=== PATIENT | male | born 2000 | race African-American/Black ===

== ENCOUNTER 2020-10-25 21:27 | Emergency (ER) | payer OTHER, SELFPAY ==
--- NOTE | ~2020-10-25 | XR_ITS ---
XR hand RT min 3V DATE: 10/25/2020 22:13 INDICATION: Injury. Posterior laceration and swelling TECHNIQUE: 3 views COMPARISON: None FINDINGS: There is a transverse fracture of the mid shaft of the fourth metacarpal bone. There is 1.5 mm ulnar displacement, complete dorsal displacement and approximately 20 degrees apex dorsal angulat ion. No other fracture or dislocation. IMPRESSION: Fourth metacarpal shaft fracture Reviewed, dictated and finalized at location A.
[2020-10-25 21:32] VITALS: BP 146/88; PULSE 75; RESP 16; TEMP 36.7; O2SAT 95
--- NOTE | 2020-10-25 22:25 | ED.GENADULT ---
HPI - General Adult General Chief complaint: Extremity Injury, Upper Stated complaint: R hand pain Time Seen by Provider: 10/25/20 21:33 Source: patient and family Mode of arrival: ambulatory Limitations: no limitations History of Present Illness HPI narrative: Patient is a 20-year-old male who presents to emergency department for evaluation of right hand injury that occurred just prior to arrival patient notes history of prior fracture patient is not forthcoming as to the etiology of the injury does not want to share the mechanism patient notes swelling and tenderness of the dorsal surface of the right hand patient denies other injuries or complaints patient does not wish for anything for pain patient presents for private vehicle in no distress Related Data Allergies Allergy/AdvReac Type Severity Reaction Status Date / Time Penicillins Allergy Unknown Verified 06/04/17 23:38 Review of Systems Review of Systems: All systems reviewed & are unremarkable except as noted in HPI and below Exam Narrative: Exam Narrative: GENERAL: Well-appearing, well-nourished, and in no acute distress. HEAD: Normocephalic, atraumatic. EYES: PERRLA and EOMI. ENT: Nares clear, no rhinorrhea or epistaxis. Mucous membranes moist. EXTREMITIES: Tenderness and deformity over the fourth mid metacarpal no other abnormalities other than a few abrasions over the MCP joints. SKIN: Warm, dry, no rash. NEURO: No focal deficits. Alert and oriented x3. Neurovascularly intact PSYCH: Normal mood and affect. Course Course Emergency Course: Patient presented with injury of the right hand would not share the mechanism patient will be discharged home with referral for plastic surgery patient given contact information for hand surgery clinic at [facility] patient agrees with this plan patient aware of discussion made with hand surgery and that they will contact him was also given contact information in case he does not hear from them Consultations Consultation #1: Discussed case with orthopedic hand surgery at [facility] who took the patient's demographic information and they will contact him on Thursday to set him up to be seen in clinic would like the patient to be placed in a ulnar gutter splint Date: 10/25/20 Time: 22:53 Vital Signs Vital signs: Vital Signs Temperature 98.0 F 10/25/20 21:32 Pulse Rate 75 10/25/20 21:32 Respiratory Rate 16 10/25/20 21:32 Blood Pressure 146/88 H 10/25/20 21:32 Pulse Oximetry 95 10/25/20 21:32 Temperature 98.0 F 10/25/20 21:32 Pulse Rate 75 10/25/20 21:32 Respiratory Rate 16 10/25/20 21:32 Blood Pressure 146/88 H 10/25/20 21:32 Pulse Oximetry 95 10/25/20 21:32 Procedures Orthopedic Splinting/Casting Injury #1: Splinting/Casting Date: 10/25/20 Splinting/Casting Time: 22:56 Side: right Upper Extremity Injury Location: hand Splint: customized in ED OCL: ulnar gutter Pre-Procedure Neuro Vascular Exam: normal Post-Procedure Neuro Vascular Exam: normal Medical Decision Making MDM Narrative Medical decision making narrative: Patients injury or pain is consistent with musculoskeletal etiology. No signs of neurological or vascular compromise on exam. Compartments and tisues are soft without signs of compartment syndrome. Pain is felt appropriate for further evaluation on an outpatient basis. Vital Signs Vital Signs: Vital Signs Temperature 98.0 F 10/25/20 21:32 Pulse Rate 75 10/25/20 21:32 Respiratory Rate 16 10/25/20 21:32 Blood Pressure 146/88 H 10/25/20 21:32 Pulse Oximetry 95 10/25/20 21:32 Temperature 98.0 F 10/25/20 21:32 Pulse Rate 75 10/25/20 21:32 Respiratory Rate 16 10/25/20 21:32 Blood Pressure 146/88 H 10/25/20 21:32 Pulse Oximetry 95 10/25/20 21:32 Discharge Plan Discharge Clinical Impression: Fracture of hand Patient Disposition: Home, Self-Care Condition: Stable Instructi
== END 2020-10-25 23:02 | disposition home or self-care (01) ==
PROVIDERS: Emergency Provider Emergency Medicine
DX: S62.324A Displaced fracture of shaft of fourth metacarpal bone, right hand, initial encounter for closed fracture (principal); X58.XXXA Exposure to other specified factors, initial encounter
CPT/HCPCS: 29125; 73130; 99284; A4565

== ENCOUNTER 2021-10-11 00:12 | Emergency (ER) | payer OTHER, SELFPAY ==
[2021-10-11 00:13] VITALS: BP 144/80; PULSE 75; RESP 18; TEMP 36.1; O2SAT 100
[2021-10-11 00:24] LABS: Glucose Point of Care 113 mg/dl (65-105)
--- NOTE | 2021-10-11 00:33 | ED.RECABL ---
HPI - Recheck/Abnormal Lab/Rx General Chief Complaint: Recheck/Abnormal Lab/Rx Stated Complaint: lower blood sugar Time Seen by Provider: 10/11/21 00:15 History of Present Illness HPI narrative: 20-year-old type I diabetic male presents to the emergency room with complaints of hypoglycemia. Patient has an implantable freestyle juliana in his right tricep. States he change the sensor yesterday. Has noted that over the past 8 hours his blood sugars have been labile ranging from 50-120. Patient states he has remained asymptomatic. Denies altered mental status, dizziness, lightheadedness, diaphoresis, loss of consciousness, nausea vomiting. Patient states he has had no changes to his insulin dosing. Related Data Allergies Allergy/AdvReac Type Severity Reaction Status Date / Time Penicillins Allergy Unknown Verified 06/04/17 23:38 Review of Systems Review of Systems: CONSTITUTIONAL: Denies fever, chills, or sweats. EYES: Denies visual changes, redness, or discharge. ENT: Denies rhinorrhea, congestion, sore throat, or otalgia. CARDIOVASCULAR: Denies chest pain, palpitations, or edema. RESPIRATORY: Denies cough or dyspnea. GASTROINTESTINAL: Denies abdominal pain, nausea, vomiting, or diarrhea. GENITOURINARY: Denies dysuria or hematuria. SKIN: Denies rash or itching. MUSCULOSKELETAL: Denies back pain, joint pain, or myalgia. NEUROLOGIC: Denies headache, numbness, dizziness, or weakness. PSYCHIATRIC: Denies anxiety or depression. PMFSH Past Medical History Medical History Diabetes type 1, controlled Exam Narrative: GENERAL: Well-appearing, well-nourished, and in no acute distress. HEAD: Normocephalic, atraumatic. EYES: PERRLA and EOMI. ENT: Nares clear, no rhinorrhea or epistaxis. Mucous membranes moist. NECK: Supple. No adenopathy or masses. No carotid bruits or JVD CHEST: Clear to auscultation. No respiratory distress. No wheezes rales or rhonchi HEART: Regular rate and rhythm. No murmur heard. Normal peripheral pulses. ABDOMEN: Soft, nontender, nondistended, normal active bowel sounds. EXTREMITIES: Normal range of motion. No edema. SKIN: Warm, dry, no rash. NEURO: No focal deficits. Alert and oriented x3. PSYCH: Normal mood and affect. Course Vital Signs Vital signs: Vital Signs Temperature 36.1 C L 10/11/21 00:13 Pulse Rate 75 10/11/21 00:13 Respiratory Rate 18 10/11/21 00:13 Blood Pressure 144/80 H 10/11/21 00:13 Pulse Oximetry 100 10/11/21 00:13 Temperature 36.1 C L 10/11/21 00:13 Pulse Rate 75 10/11/21 00:13 Respiratory Rate 18 10/11/21 00:13 Blood Pressure 144/80 H 10/11/21 00:13 Pulse Oximetry 100 10/11/21 00:13 MDM - Recheck/Abnormal Lab/Rx MDM Narrative Medical decision making narrative: 21-year-old male presents emergency room with hypoglycemia via his freestyle juliana insulin device. Patient states he was getting readings of 55-80 at home, all while remaining asymptomatic. 3 blood sugars were evaluated here in the emergency room with readings of 105, 116, and 148. Patient has remained asymptomatic from symptoms of hypoglycemia. Patient is likely experiencing a faulty freestyle juliana device. 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 Lab Data Result diagrams: 10/11/21 00:32 10/11/21 00:32 Labs: Lab Results 10/11/21 10/11/21 10/11/21 Range/Units 00:21 00:32 00:32 WBC 6.7 (4.5-10.0) K/mm3 RBC 5.18 (4.6-6.20) M/mm3 Hgb 16.3 (14.0-18.0) g/dL Hct 47.3 (42.0-52.0) % MCV 91.3 (80-100) fl MCH 31.5 (26-34) pg MCHC 34.5 (32-36) g/dl RDW 12.3 (11.5-14.5) % Plt Count 315 (150-375) k/mm3 MPV 8.9 (7.4-10.4) fl Immature Gran % (Auto) 0.1 (0-0.5) % Neut % (Auto) 59.9 (45.5-73.1) % Lymph % (Auto) 28.3 (18.3-44.2) % [place] % (Auto) 7.5 (2.6-8.5) % Eos % (Auto) 3.6 (0-4.4) % Baso % (Auto) 0.6 (0.
[2021-10-11 00:37] LABS: Basophils Percent Auto 0.6 % (0.2-1.2); Eosinophils Absolute Auto 0.2 K/mm3 (0-0.3); Eosinophils Percent Auto 3.6 % (0-4.4); Hematocrit 47.3 % (42.0-52.0); Hemoglobin 16.3 g/dL (14.0-18.0); Immature Granulocyte Absolute 0.01 K/mm3 (0.00-0.031); Immature Granulocyte Percent A 0.1 % (0-0.5); Lymphocytes Absolute Auto 1.89 K/mm3 (0.9-3.2); Lymphocytes Percent Auto 28.3 % (18.3-44.2); Mean Corpuscular HGB Conc 34.5 g/dl (32-36); Mean Corpuscular Hemoglobin 31.5 pg (26-34); Mean Corpuscular Volume 91.3 fl (80-100); Mean Platelet Volume 8.9 fl (7.4-10.4); Monocytes Absolute Auto 0.5 K/mm3 (0.1-0.6); Monocytes Percent Auto 7.5 % (2.6-8.5); Neutrophils Percent Auto 59.9 % (45.5-73.1); Platelet Count Result 315 k/mm3 (150-375); Red Blood Count 5.18 M/mm3 (4.6-6.20); Red Cell Distribution Width 12.3 % (11.5-14.5); White Blood Count 6.7 K/mm3 (4.5-10.0)
[2021-10-11 00:57] LABS: Alanine Aminotransferase 42 U/L (4-50); Albumin Level 4.7 g/dL (3.5-5.1); Alkaline Phosphatase 53 U/L (38-126); Anion Gap 7 mmol/L (8-16); Aspartate Amino Transferase 59 U/L (17-59); Blood Urea Nitrogen 16 mg/dL (9-20); Carbon Dioxide 27 mmol/L (22-30); Chloride 102 mmol/L (98-107); Estimated CRCL calculation 132 ml/min; Estimated Glomerular Filt Rate > 60; Glucose 105 mg/dL (65-110); Potassium 4.6 mmol/L (3.4-5.0); Sodium 136 mmol/L (137-145)
[2021-10-11 02:01] LABS: Glucose Point of Care 143 mg/dl (65-105)
[2021-10-11 02:31] VITALS: BP 161/94; PULSE 84; RESP 16; O2SAT 98
== END 2021-10-11 02:49 | disposition home or self-care (01) ==
PROVIDERS: Emergency Provider Nurse Practitioner Family; PCP Hospitalist
DX: E10.9 Type 1 diabetes mellitus without complications (principal); Z79.4 Long term (current) use of insulin
CPT/HCPCS: 36415; 80053; 82948; 85025; 99283

== ENCOUNTER 2021-12-03 23:58 | Emergency (ER) | payer OTHER, SELFPAY ==
--- NOTE | ~2021-12-03 | CT_ITS ---
EXAMINATION: CT abdomen pelvis w con DATE: 12/04/2021 01:59 INDICATION: Low abdominal pain. Nausea, vomiting, and diarrhea. TECHNIQUE: Computed tomography (CT) of the abdomen and pelvis was performed with 100 mL Omnipaque 350 intravenous contrast. Automated exposure control and iterative reconstruction technique were employe d. The dose-length product was 1511.54 mGy-cm. COMPARISON: None. FINDINGS: The visualized portions of the lung bases demonstrate mild atelectasis. No pleural effusion . The heart size is normal. No pericardial effusion. The liver, gallbladder, spleen, pancreas, adrena l glands, and kidneys are normal. There are no dilated loops of bowel. The appendix is normal. There are no pathologically enlarged lymph nodes. There is no free intraperitoneal fluid. The bones are unr emarkable. IMPRESSION: 1. No etiology for the patient's symptoms. Reviewed, dictated and finalized at location A.
[2021-12-04 00:01] VITALS: BP 148/97; PULSE 67; RESP 16; TEMP 36.7; O2SAT 100
--- NOTE | 2021-12-04 01:05 | ED.NAVMDI ---
HPI - Nausea/Vomiting/Diarrhea General Chief complaint: Nausea/Vomiting/Diarrhea Stated complaint: N/V, ABD pain Time Seen by Provider: 12/04/21 00:52 Source: patient Mode of arrival: ambulatory Limitations: no limitations History of Present Illness HPI Narrative: This is a 21-year-old male that presents to the emergency department for nausea, vomiting and diarrhea. Ongoing over the last couple of days. He has been taking Zofran with little relief. He is a type I diabetic and his blood sugars have been running in the 300s. Reports diffuse abdominal pain. Reports he noted some dark stools. Denies fever or dysuria. Related Data Allergies Allergy/AdvReac Type Severity Reaction Status Date / Time Penicillins Allergy Unknown Verified 06/04/17 23:38 Review of Systems Review of Systems: CONSTITUTIONAL: Denies fever GASTROINTESTINAL: Reports abdominal pain, nausea, vomiting, and diarrhea. GENITOURINARY: Denies dysuria All systems reviewed & are unremarkable except as noted in HPI and below PMFSH Past Medical History Medical History Diabetes type 1, controlled Social History Social History (Updated 12/04/21 @ 01:06 by Heather Nice PA-C) Smoking status: Never smoker Exam Narrative: GENERAL: Well-appearing, well-nourished, and in no acute distress. HEAD: Normocephalic, atraumatic. EYES: EOMI. CHEST: Clear to auscultation. No respiratory distress. No wheezes rales or rhonchi HEART: Regular rate and rhythm. No murmur heard. Normal peripheral pulses. ABDOMEN: Soft, nondistended, normal active bowel sounds. Tender to palpation throughout the abdomen, without guarding. No CVA tenderness EXTREMITIES: Normal range of motion. No edema. SKIN: Warm, dry, no rash. NEURO: No focal deficits. Alert and oriented x3. PSYCH: Normal mood and affect RECTAL: Hemoccult negative Course Vital Signs Vital signs: Vital Signs Temperature 98.0 F 12/04/21 00:01 Pulse Rate 67 12/04/21 00:01 Respiratory Rate 16 12/04/21 00:01 Blood Pressure 148/97 H 12/04/21 00:01 Pulse Oximetry 100 12/04/21 00:01 Temperature 98.0 F 12/04/21 00:01 Pulse Rate 96 12/04/21 03:08 Respiratory Rate 18 12/04/21 03:08 Blood Pressure 127/79 12/04/21 03:08 Pulse Oximetry 99 12/04/21 03:08 MDM - Nausea/Vomiting/Diarrhea MDM Narrative Medical decision making narrative: Patient presents to the emergency department for abdominal pain, nausea and vomiting. Was also reporting some black stools. He is Hemoccult negative. He is afebrile and nontoxic-appearing. His vitals are stable. CBC and metabolic panel without concerning findings. UA without evidence of infection. No signs of DKA currently. Patient hydrated, given antiemetic with improvement. CT scan of the abdomen and pelvis obtained, awaiting results. Care taken over by Dr. Kowalski Lab Data Attestation: I reviewed the patient's lab results. Result diagrams: 12/04/21 01:01 12/04/21 01:01 Labs: Lab Results 12/04/21 12/04/21 12/04/21 Range/Units 01:01 01:01 01:01 WBC 6.5 (4.5-10.0) K/mm3 RBC 5.23 (4.6-6.20) M/mm3 Hgb 16.6 (14.0-18.0) g/dL Hct 46.8 (42.0-52.0) % MCV 89.5 (80-100) fl MCH 31.7 (26-34) pg MCHC 35.5 (32-36) g/dl RDW 11.8 (11.5-14.5) % Plt Count 298 (150-375) k/mm3 MPV 9.2 (7.4-10.4) fl Immature Gran % (Auto) 0.2 (0-0.5) % Neut % (Auto) 63.9 (45.5-73.1) % Lymph % (Auto) 24.7 (18.3-44.2) % [place] % (Auto) 8.1 (2.6-8.5) % Eos % (Auto) 2.5 (0-4.4) % Baso % (Auto) 0.6 (0.2-1.2) % Lymph # (Auto) 1.59 (0.9-3.2) K/mm3 [place] # (Auto) 0.5 (0.1-0.6) K/mm3 Eos # (Auto) 0.2 (0-0.3) K/mm3 Baso # (Auto) 0.0 (0.0-0.1) K/mm3 Abs Immat Gran (auto) 0.01 (0.00-0.031) K/mm3 Absolute Neuts (auto) 4.1 (1.3-6.7) K/mm3 Absolute Nucleated RBC 0.0 (0.0-0.012) K/mm3 Nucleated RBC
[2021-12-04] MEDS: ONDANSETRON INJ 4 MG/2 ML VIAL IV PUSH (01:16)
[2021-12-04] MEDS: PANTOPRAZOLE SODIUM IV 40 MG VIAL IV PUSH (01:16)
[2021-12-04] MEDS: SODIUM CHLORIDE 0.9% IV 1,000 ML 999 ML IV CONT (01:16)
[2021-12-04 01:19] LABS: Basophils Percent Auto 0.6 % (0.2-1.2); Eosinophils Absolute Auto 0.2 K/mm3 (0-0.3); Eosinophils Percent Auto 2.5 % (0-4.4); Hematocrit 46.8 % (42.0-52.0); Hemoglobin 16.6 g/dL (14.0-18.0); Immature Granulocyte Absolute 0.01 K/mm3 (0.00-0.031); Immature Granulocyte Percent A 0.2 % (0-0.5); Lymphocytes Absolute Auto 1.59 K/mm3 (0.9-3.2); Lymphocytes Percent Auto 24.7 % (18.3-44.2); Mean Corpuscular HGB Conc 35.5 g/dl (32-36); Mean Corpuscular Hemoglobin 31.7 pg (26-34); Mean Corpuscular Volume 89.5 fl (80-100); Mean Platelet Volume 9.2 fl (7.4-10.4); Monocytes Absolute Auto 0.5 K/mm3 (0.1-0.6); Monocytes Percent Auto 8.1 % (2.6-8.5); Neutrophils Absolute Auto 4.1 K/mm3 (1.3-6.7); Neutrophils Percent Auto 63.9 % (45.5-73.1); Platelet Count Result 298 k/mm3 (150-375); Red Blood Count 5.23 M/mm3 (4.6-6.20); Red Cell Distribution Width 11.8 % (11.5-14.5); White Blood Count 6.5 K/mm3 (4.5-10.0)
[2021-12-04 01:22] LABS: Glucose Point of Care 278 mg/dl (65-105)
[2021-12-04 01:31] LABS: Alanine Aminotransferase 48 U/L (4-50); Albumin Level 4.5 g/dL (3.5-5.1); Alkaline Phosphatase 77 U/L (38-126); Anion Gap 6 mmol/L (8-16); Aspartate Amino Transferase 36 U/L (17-59); Bilirubin,Total 0.6 mg/dL (0.2-1.3); Blood Urea Nitrogen 10 mg/dL (9-20); Calcium 8.9 mg/dL (8.4-10.2); Carbon Dioxide 30 mmol/L (22-30); Chloride 98 mmol/L (98-107); Estimated CRCL calculation 147 ml/min; Estimated Glomerular Filt Rate > 60; Glucose 279 mg/dL (65-110); Lipase 147 U/L (23-300); Sodium 134 mmol/L (137-145)
[2021-12-04 02:26] LABS: Magnesium 1.9 mg/dL (1.6-2.3); Phosphorus 3.5 mg/dL (2.5-4.5)
[2021-12-04 02:26] LABS: Add Urine Microscopic? YES; Appearance Urine Clear (Clear); Bilirubin Urine Negative (Negative); Blood Urine Negative (Negative); Color Urine Yellow (Yellow); Glucose Urine UA 3+ mg/dL (Negative); Ketones Urine Negative (Negative); Leukocyte Esterase Ur Negative LEU/UL (Negative); Mucus Urine Rare /lpf; Nitrate Urine Negative (Negative); Protein Urine Negative (Negative); RBC Urine 0-2 /hpf (0-2); Urobilinogen Urine Negative mg/dL (<2.0); WBC Urine 0-3 /hpf
[2021-12-04 02:31] LABS: Specific Grav Ur 1.038 (1.001-1.035)
[2021-12-04 02:53] LABS: Beta-Hydroxybutyrate/Acetoacetate 0.09 mmol/L (0.02-0.27)
[2021-12-04] MEDS: PROCHLORPERAZINE EDISYLATE 10 MG/2 ML VIAL IV PUSH (03:03)
[2021-12-04 03:08] VITALS: BP 127/79; PULSE 96; RESP 18; O2SAT 99
== END 2021-12-04 03:52 | disposition home or self-care (01) ==
PROVIDERS: Physician Assistant; Emergency Provider Emergency Medicine; PCP Hospitalist
DX: K52.9 Noninfective gastroenteritis and colitis, unspecified (principal); E10.8 Type 1 diabetes mellitus with unspecified complications
CPT/HCPCS: 36415; 74177; 80053; 81001; 82010; 82948; 83690; 83735; 84100; 85025; 96361; 96365; 96375; 99284; C9113; J0131; J0780; J2405; J7030; Q9967